=== PATIENT | male | born 1975 | race Caucasian/White ===

== ENCOUNTER 2018-07-08 10:22 | Outpatient (REF) | payer OTHER, SELFPAY ==
[2018-07-08 13:28] LABS: ALT 47 U/L (12-78); AST 15 U/L (15-37); Albumin 3.5 g/dL (3.4-5.0); Alkaline Phosphatase 70 U/L (46-116); Anion Gap 7.9 mmol/L (3-11); BUN 24 mg/dL (7-18); Bilirubin, Total 0.4 mg/dL (0.2-1.0); CO2 29.1 mmol/L (21.0-32.0); CREATININE 1.25 mg/dL (0.70-1.30); Chloride 104 mmol/L (98-107); Cholesterol 301 mg/dL (50-200); Glucose 88 mg/dL (70-100); HDL Cholesterol 64 mg/dL (40-60); LDL CHOLESTEROL 202 mg/dL (<100); Potassium 4.1 mmol/L (3.5-5.1); Sodium 141 mmol/L (136-145); Total Protein 7.1 g/dL (6.4-8.2); Triglyceride 245 mg/dL (30-150)
== END 2018-07-08 10:42 ==
LOC: NCHCN 10:22
PROVIDERS: PCP Family Medicine; Visit Provider Family Medicine
DX: Z00.00 Encounter for general adult medical examination without abnormal findings (principal); G25.81 Restless legs syndrome; Z13.220 Encounter for screening for lipoid disorders
CPT/HCPCS: 80053; 80061; 83721

== ENCOUNTER 2018-12-30 09:06 | Outpatient (REF) | payer OTHER, SELFPAY ==
[2018-12-30 13:36] LABS: Calculated LDL 220 mg/dL; Cholesterol 332 mg/dL (50-200); HDL Cholesterol 70 mg/dL (40-60); Triglyceride 213 mg/dL (30-150)
== END 2018-12-30 09:26 ==
LOC: NCHCN 09:06
PROVIDERS: PCP Family Medicine; Visit Provider Family Medicine
DX: E78.5 Hyperlipidemia, unspecified (principal)
CPT/HCPCS: 80061

== ENCOUNTER 2019-11-14 08:48 | Outpatient (REF) | payer OTHER, SELFPAY ==
[2019-11-14 21:12] LABS: ALT 63 U/L (16-63); AST 30 U/L (15-37); Albumin 3.8 g/dL (3.4-5.0); Alkaline Phosphatase 66 U/L (46-116); Bilirubin, Direct 0.14 mg/dL (0.00-0.20); Bilirubin, Total 0.7 mg/dL (0.2-1.0); Total Protein 7.3 g/dL (6.4-8.2)
[2019-11-14 21:59] LABS: Calculated LDL 146 mg/dL (<100); Cholesterol 253 mg/dL (<200); HDL Cholesterol 62 mg/dL (40-60); Triglyceride 228 mg/dL (<150)
== END 2019-11-14 09:08 ==
LOC: NCHCN 08:48
PROVIDERS: PCP Family Medicine; Visit Provider Family Medicine
DX: Z00.00 Encounter for general adult medical examination without abnormal findings (principal); E78.5 Hyperlipidemia, unspecified
CPT/HCPCS: 80061; 80076

== ENCOUNTER 2020-02-13 11:21 | Outpatient (REF) | payer OTHER, SELFPAY ==
[2020-02-13 21:35] LABS: Calculated LDL 170 mg/dL (<100); Cholesterol 299 mg/dL (<200); HDL Cholesterol 72 mg/dL (40-60); Triglyceride 287 mg/dL (<150)
[2020-02-14 18:58] LABS: PSA, Screening 0.9 ng/mL (0.0-2.5)
== END 2020-02-13 11:41 ==
LOC: NCHCN 11:21
PROVIDERS: PCP Family Medicine; Visit Provider Family Medicine
DX: Z00.00 Encounter for general adult medical examination without abnormal findings (principal); E78.5 Hyperlipidemia, unspecified; Z12.5 Encounter for screening for malignant neoplasm of prostate; Z80.42 Family history of malignant neoplasm of prostate
CPT/HCPCS: 80061; 84153

== ENCOUNTER 2020-05-14 16:22 | Outpatient (REF) | payer OTHER, SELFPAY ==
[2020-05-14 15:23] LABS: Calculated LDL 93 mg/dL (<100); Cholesterol 214 mg/dL (<200); HDL Cholesterol 45 mg/dL (40-60); Triglyceride 384 mg/dL (<150)
== END 2020-05-14 16:23 | disposition home or self-care (01) ==
LOC: NCHCN 16:22
PROVIDERS: PCP Family Medicine; Visit Provider Family Medicine
DX: Z00.00 Encounter for general adult medical examination without abnormal findings (principal); E78.5 Hyperlipidemia, unspecified
CPT/HCPCS: 80061

== ENCOUNTER 2021-04-11 17:57 | Outpatient (REF) | payer OTHER, SELFPAY ==
[2021-04-11 12:45] LABS: Hemoglobin A1C 5.9 % (<5.7)
[2021-04-11 12:46] LABS: ALT 74 U/L (16-63); AST 26 U/L (15-37); Albumin 4.1 g/dL (3.4-5.0); Alkaline Phosphatase 80 U/L (46-116); Anion Gap 9.3 mmol/L (3-11); BUN 27 mg/dL (7-18); Bilirubin, Total 0.8 mg/dL (0.2-1.0); CO2 28.7 mmol/L (21.0-32.0); CREATININE 1.3 mg/dL (0.70-1.30); Calcium 9.5 mg/dL (8.5-10.1); Calculated LDL 83 mg/dL (<100); Chloride 103 mmol/L (98-107); Cholesterol 207 mg/dL (<200); Estimated GFR 58.92 (mL/min/1.73m2); Glucose 96 mg/dL (74-106); HDL Cholesterol 56 mg/dL (40-60); Potassium 4.7 mmol/L (3.5-5.1); Sodium 141 mmol/L (136-145); Total Protein 7.8 g/dL (6.4-8.2); Triglyceride 341 mg/dL (<150)
== END 2021-04-11 17:58 | disposition home or self-care (01) ==
LOC: NCHCN 17:57
PROVIDERS: PCP Family Medicine; Visit Provider Family Medicine
DX: E78.5 Hyperlipidemia, unspecified (principal)
CPT/HCPCS: 80053; 80061; 83036

== ENCOUNTER 2022-10-26 17:54 | Outpatient (REF) | payer SELFPAY ==
[2022-10-26 17:21] LABS: ALT 51 U/L (16-63); AST 24 U/L (15-37); Albumin 3.9 g/dL (3.4-5.0); Alkaline Phosphatase 61 U/L (46-116); Anion Gap 8.8 mmol/L (3-11); BUN 24 mg/dL (7-18); Bilirubin, Total 0.6 mg/dL (0.2-1.0); CO2 27.2 mmol/L (21.0-32.0); CREATININE 1.2 mg/dL (0.70-1.30); Calcium 9.3 mg/dL (8.5-10.1); Calculated LDL 79 mg/dL (<100); Chloride 103 mmol/L (98-107); Cholesterol 178 mg/dL (<200); Estimated GFR 74.13 (mL/min/1.73m2); Glucose 99 mg/dL (74-106); HDL Cholesterol 50 mg/dL (40-60); Potassium 4.1 mmol/L (3.5-5.1); Sodium 139 mmol/L (136-145); Total Protein 7.3 g/dL (6.4-8.2); Triglyceride 245 mg/dL (<150)
[2022-10-26 18:04] LABS: Vitamin D 25 Total 23.9 ng/mL (30-100)
== END 2022-10-26 17:55 | disposition home or self-care (01) ==
LOC: NCHCN 17:54
PROVIDERS: PCP Family Medicine; Visit Provider Family Medicine
DX: Z00.00 Encounter for general adult medical examination without abnormal findings (principal); E78.5 Hyperlipidemia, unspecified; E55.9 Vitamin D deficiency, unspecified
CPT/HCPCS: 80053; 80061; 82306